=== PATIENT | female | born 1960 | race Caucasian/White ===

== ENCOUNTER 2019-05-29 17:37 | Emergency (ER) | payer BC ==
[2019-05-29 17:56] VITALS: BP 150/103
--- NOTE | 2019-05-29 18:15 | ED ---
Skin Complaint - HPI Summary HPI Summary: 58 yo WF p/w 5-6 cm rash on right axilla x 1-2 weeks, does not recall a tick bite but does go outside to take the dogs out where there are lots of ticks but has not seen a tick on her. Denies f/c/joint aches. - History of Current Complaint Chief Complaint: [facility] Time Seen by Provider: 05/29/19 17:42 Stated Complaint: INSECT BITE 1 WEEK+ AGO CAUSING RASH Hx Obtained From: Patient Hx From Patient Unobtainable Due To: Other Hx Last Menstrual Period: post Onset/Duration: Started Days Ago Skin Exposure Onset/Duration: Days Ago Timing: Constant Onset Severity: Moderate Pain Intensity: 0 - Allergy/Home Medications Allergies/Adverse Reactions: Allergies Allergy/AdvReac Type Severity Reaction Status Date / Time lorazepam Allergy Severe HEAVILY Verified 05/29/19 17:56 SEDATES latex Allergy Rash Verified 05/29/19 17:56 Home Medications: Home Medications Nadolol TAB* [Corgard TAB*] 20 mg PO DAILY 05/29/19 [History Confirmed 05/29/19] PMH/Surg Hx/FS Hx/Imm Hx Previously Healthy: Yes Endocrine/Hematology History: Denies: Hx Diabetes, Hx Thyroid Disease Cardiovascular History: Reports: Other Cardiovascular Problems/Disorders - HX OF A-FIB 9 YEARS AGO Denies: Hx Congestive Heart Failure, Hx Hypertension, Hx Pacemaker/ICD Respiratory History: Denies: Hx Asthma, Hx Chronic Obstructive Pulmonary Disease (COPD) GI History: Reports: Hx Gastroesophageal Reflux Disease - IN THE PAST- NO PROBLEMS WITH AT PRESENT Denies: Hx Ulcer History: Denies: Hx Renal Disease Sensory History: Denies: Hx Contacts or Glasses, Hx Hearing Aid Opthamlomology History: Denies: Hx Contacts or Glasses Neurological History: Reports: Other Neuro Impairments/Disorders - VESTIBULAR NEURITIS AFFECTS THE LEFT EYE Psychiatric History: Reports: Hx Anxiety - NO MEDICATION FOR Denies: Hx Panic Disorder - Surgical History Surgery Procedure, Year, and Place: LOCAL ANESTHESIA ONLY FOR MOLE REMOVAL. DECEMBER 2013 UTERINE PROLAPSE REPAIR Hx Anesthesia Reactions: No Infectious Disease History: No Infectious Disease History: Denies: Hx Hepatitis, Hx Human Immunodeficiency Virus (HIV), Traveled Outside the [place] in Last 30 Days - Family History Known Family History: Positive: Non-Contributory - Social History Alcohol Use: Daily Alcohol Amount: 2-3 drinks Substance Use Type: Reports: None Smoking Status (MU): Never Smoked Tobacco Review of Systems Constitutional: Negative Eyes: Negative ENT: Negative Respiratory: Negative Gastrointestinal: Negative Genitourinary: Negative Musculoskeletal: Negative Positive: Rash Neurological: Negative All Other Systems Reviewed And Are Negative: Yes Physical Exam - Summary Physical Exam Summary: Vital Signs Reviewed: Yes Eye Exam: Normal Eyes: Positive: Conjunctiva Clear ENT: Positive: Normal ENT inspection Neck: Positive: Supple Respiratory Exam: Normal Respiratory: Positive: Lungs clear, Normal breath sounds. Cardiovascular Exam: Normal Cardiovascular: Positive: RRR Abdomen: NT/ND Musculoskeletal Exam: Normal Neurological Exam: Normal Psychological Exam: Normal Skin Exam: 5cm target like rash on right anterior axilla at the junction of upper arm and pec major Triage Information Reviewed: Yes Vital Signs On Initial Exam: Initial Vitals Temp Pulse Resp BP Pulse Ox 36.6 C 73 16 150/103 98 05/29/19 17:50 05/29/19 17:50 05/29/19 17:50 05/29/19 17:50 05/29/19 17:50 Vital Signs Reviewed: Yes Diagnostics - Vital Signs Vital Signs Temp Pulse Resp BP Pulse Ox 05/29/19 17:50 36.6 C 73 16 150/103 98 - Laboratory Lab Statement: Any lab studies that have been ordered have been reviewed, and results considered in the medical decision making process. Course/Dx - Course Assessment/Plan: erythema migrans, will send out for lyme titers and empiricallt tx with Doxy until titers come back - Diagnoses Provider Diagnoses: Erythema migrans (Lyme disease) Discharge ED - Sign-Out/Discharge Documenting (check all that apply): Patient Departure All imaging exams completed and their final reports reviewed: No Studies - Discharge Plan Condition: Stable Disposition: HOME Prescriptions: DOXYcycline CAP(*) [DOXYcycline 100MG CAP(*)] 100 mg PO BID 14 Days #28 cap Patient Education Materials: Lyme Disease (ED), Tick Bite (ED) Referrals: Michelle Muñoz MD [Primary Care Provider] - Additional Instructions: pls call for lyme titer in 4-5 days - Billing Disposition and Condition Condition: STABLE Disposition: Home
[2019-05-30 11:29] LABS: ABS Basophils 0.1 10^3/ul (0-0.2); ABS Eosinophils 0.3 10^3/ul (0-0.6); ABS Lymphocytes 1.2 10^3/ul (1.0-4.8); ABS Monocytes 0.6 10^3/ul (0-0.8); ABS Neutrophils 3.1 10^3/ul (1.5-7.7); Eosinophil % 5.2 %; Hematocrit 41 % (35-47); Hemoglobin 14.2 g/dL (12.0-16.0); Lymphocyte % 23.2 %; Mean Corpuscular HGB Conc 35 g/dL (31-36); Mean Corpuscular Hemoglobin 32 pg (27-31); Mean Corpuscular Volume 94 fL (80-97); Mean Platelet Volume 7.6 fL (7.4-10.4); Nucleated Red Blood Cells % 0.2; Platelet Count 233 10^3/uL (150-450); Red Blood Count 4.39 10^6 /uL (3.70-4.87); Red Cell Distribution Width 13 % (10-15); White Blood Count 5.3 10^3/uL (3.5-10.8)
[2019-05-30 11:42] LABS: Albumin 4.5 g/dL (3.2-5.2); Calcium 9.6 mg/dL (8.6-10.3); Total Bilirubin 0.5 mg/dL (0.2-1.0)
[2019-05-30 11:48] LABS: Albumin/Globulin Ratio 1.5 (1-3); BUN/Creatinine Ratio 18.3 (8-20); EGFR African American 102.7 (>60); EGFR Non-African American 84.8 (>60); Total Protein 7.5 g/dL (6.4-8.9)
--- NOTE | 2019-05-30 15:33 | UC ---
- Progress Note Progress Note: please contact patient LFTs elevated and need evaluation by here PCP Course/Dx - Diagnoses Provider Diagnoses: Erythema migrans (Lyme disease) Discharge ED - Sign-Out/Discharge Documenting (check all that apply): Post-Discharge Follow Up All imaging exams completed and their final reports reviewed: No Studies - Discharge Plan Condition: Stable Disposition: HOME Prescriptions: DOXYcycline CAP(*) [DOXYcycline 100MG CAP(*)] 100 mg PO BID 14 Days #28 cap Patient Education Materials: Lyme Disease (ED), Tick Bite (ED) Referrals: Michelle Muñoz MD [Primary Care Provider] - Additional Instructions: pls call for lyme titer in 4-5 days - Billing Disposition and Condition Condition: STABLE Disposition: Home
[2019-06-01 20:10] LABS: B garinii/B afzelii PCR Negative (Negative); B mayonii PCR Negative (Negative)
== END 2019-05-29 18:36 | disposition home or self-care (01) ==
LOC: UCEAST 17:37
DX: A69.29 Other conditions associated with Lyme disease (principal); F41.9 Anxiety disorder, unspecified; Z91.040 Latex allergy status; Z88.8 Allergy status to other drugs, medicaments and biological substances; Z79.899 Other long term (current) drug therapy
CPT/HCPCS: 36415; 80053; 85025; 86618; 87476; 87798; 99212; G0463